=== PATIENT | female | born 1990 | race Two or more races ===

== ENCOUNTER 2025-06-16 09:35 | Observation (INO) | payer SELFPAY ==
[2025-06-16] VITALS (9 sets, daily range): BP systolic 113; BP diastolic 78; PULSE 81–111; RESP 18–99; TEMP 36.7; O2SAT 98–99; BMI 29.7
== END 2025-06-16 12:02 | disposition home or self-care (01) ==
PROVIDERS: Admitting Provider Obstetrics & Gynecology; Visit Provider Obstetrics & Gynecology
DX: O47.1 False labor at or after 37 completed weeks of gestation (principal); Z3A.37 37 weeks gestation of pregnancy
CPT/HCPCS: 59025; 59899

== ENCOUNTER 2025-06-26 10:06 | Observation (INO) | payer MEDICAID, SELFPAY ==
[2025-06-26 10:02] VITALS: BP 114/70; PULSE 68
--- NOTE | 2025-06-26 10:08 | XR_ITS ---
Examination: Biophysical profile, ultrasound Date and time of exam: 06/26/2025, 11:55 a.m. INDICATION: Limited care, advanced maternal age COMPARISON: None Technique: Multiple transabdominal sonographic images of the pelvis abdomen obtained. Attention is directed to the breathing movement, gross body movement, amniotic fluid volume and tone. Findings: Single live IUP in cephalic position. Total biophysical profile is 8 of 8. breathing movement is 2. Gross body movement is 2. tone is 2. Qualitative amniotic fluid volume is 2 AFSANEH: 10.7 cm. FHR: 148 bpm. Impression: Biophysical profile is 8 of 8.
--- NOTE | 2025-06-26 10:10 | XR_ITS ---
Examination: Complete OB ultrasound greater than 14 weeks Date and time of exam: 06/26/2025 11:55 a.m. INDICATION: Limited care, for assessment. COMPARISON: No priors. Same day US BPP. Findings: Viable intrauterine single fetus with single amniotic sac in cephalic presentation. spine is to the maternal left side. cardiac motion: 133 bpm.. Composite estimated gestational age based on BPD, head circumference, abdominal circumference, femur length is 35 weeks 5 days with EMANI of 07/26/2025. EFW: 2865 g +/-424 g. AFSANEH: 8.2 cm. Placenta: Grade 3, fundal location. No abruption. Limited survey due to advanced gestational age. Survey of intracranial anatomy, spinal anatomy, abdominal anatomy, four-chamber heart performed with no abnormalities identified. Vocal cord insertion identified. bladder, kidneys and stomach are seen. Maternal cervix: Measures 3.9 cm in length, closed Maternal ovaries obscured by shadowing from the large gravid uterus. Impression: Single live IUP in cephalic presentation with AUA of 35 weeks 5 days. No acute abnormality detected. EFW: 2865 g +/-424 g. AFSANEH: 8.2 cm.
[2025-06-26 10:11] VITALS: BP 114/70; PULSE 68; RESP 18; RESP 99; TEMP 36.7; BMI 29.3
== END 2025-06-26 13:18 | disposition home or self-care (01) ==
LOC: S4S1 10:58 → S4SX 12:50
PROVIDERS: Admitting Provider Obstetrics & Gynecology; Referring Provider Obstetrics & Gynecology; Visit Provider Obstetrics & Gynecology
DX: O09.33 Supervision of pregnancy with insufficient antenatal care, third trimester (principal); O09.513 Supervision of elderly primigravida, third trimester; Z3A.39 39 weeks gestation of pregnancy
CPT/HCPCS: 59025; 59899; 76805; 76819; G0378

== ENCOUNTER 2025-06-26 18:53 | Inpatient (IN) | payer MEDICAID, SELFPAY ==
[2025-06-26 19:35] VITALS: BMI 32.5
[2025-06-26 19:49] VITALS: BMI 32.5
[2025-06-26] MEDS: RINGERS LACTATED 1000 ML 1,000 ML 125 ML IV (20:11)
[2025-06-26 20:29] VITALS: BP 99/75; PULSE 97
[2025-06-26 20:50] VITALS: BP 93/66; PULSE 93
[2025-06-26 21:15] VITALS: TEMP 36.7
[2025-06-26 21:18] LABS: Basophils # (Auto) 0.1 Thou/mm3 (0.0-0.2); Basophils % (Auto) 1 % (0-2.5); Eosinophils # (Auto) 0.1 Thou/mm3 (0.0-0.5); Eosinophils % (Auto) 1 % (0-10); Hematocrit 36.1 % (36.0-46.0); Hemoglobin 12.2 g/dL (12.0-16.0); Immature Granulocytes Auto 0.05 Thou/mm3 (0.00-0.00); Lymphocytes # (Auto) 2.1 Thou/mm3 (1.0-4.8); Lymphocytes % (Auto) 23 % (10-50); Mean Corpuscular HGB Conc 33.8 g/dl (31.0-37.0); Mean Corpuscular Hemoglobin 27.6 pg (25.0-35.0); Mean Corpuscular Volume 82 fL (80-100); Monocytes # (Auto) 0.9 Thou/mm3 (0.0-0.8); Monocytes % (Auto) 10 % (0-12); Neutrophils # (Auto) 6.0 Thou/mm3 (1.8-7.7); Neutrophils % (Auto) 66 % (37-80); Nucleated Red Blood Cell # 0.00 Thou/mm3 (0.00-0.00); Nucleated Red Blood Cell % 0 /100 WBC (0); Platelet Count 459 Thou/mm3 (140-440); RDW Standard Deviation 43.4 fL (36.4-46.3); Red Blood Count 4.42 Miln/mm3 (4.00-5.20); White Blood Count 9.1 Thou/mm3 (3.6-11.0)
[2025-06-26 21:24] LABS: Amphetamine/Metham Scrn,Ur OB Negative (Negative); Benzoylecgonine Screen, Ur OB Negative (Negative); Opiate Screen,Urine OB Negative (Negative); THC Screen,Urine OB Negative (Negative)
[2025-06-26 22:04] LABS: Syphilis Nonreactive (Nonreactive)
--- NOTE | 2025-06-26 22:16 | PD.LDHP ---
Documentation for date of: 06/26/25 OB Labor/Induct. HPI History of Present Illness Chief complaint: 35 years old at 39 weeks/SGA : 1 Term pregnancies: 0 pregnancies: 0 Living children: 0 History of Abortions: Spontaneous and Elective: 0 History of sections: No History of : No Date of last menstrual period: 09/26/24 EMANI: 07/03/25 Gestational Age (weeks): 39 Gestational Age (days): 0 Gestational age based on last menstrual period: 39 Indication for induction: other (AMA and SGA ) History of present illness: 35 Years old G1?P0 at 39 weeks gestational age?based on last menstrual period of dated?09/26/2024 and confirmed by a second trimester US by MFM .She was scheduled for IOL tomorrow but due to transportation issues , and AMA / ? SGA plan IOL today though EFW on US is 2.8 kg and placenta is grade 3 No complaints so far GBS negative LMP 09/26/2024 gives EDC of 07/03/2025 Ultrasound 03/13/2025 gives EDC of 07/04/2025 medical problems denies Allergies NKDA Surgical history none social history negative Comments: [facility] [address] [place] [address] [place] [facility] Report Signed Patient: DONN ROJAS Record#: [id number] Birthdate: 1990 Age/Sex: 35 / F Location: [address] Dr: Darrell Brand MD Ordering Physician: DARRELL BRAND MD Date of Service: 06/26/25 Procedure(s): US OB >= 14 weeks Fetus Accession Number(s): [id number] cc: DARRELL BRAND MD; NO PRIMARY/FAMILY,PHYSICIAN; Catracho Pathak DO~ Examination: Complete OB ultrasound greater than 14 weeks Date and time of exam: 06/26/2025 11:55 a.m. INDICATION: Limited care, for assessment. COMPARISON: No priors. Same day US BPP. Findings: Viable intrauterine single fetus with single amniotic sac in cephalic presentation. spine is to the maternal left side. cardiac motion: 133 bpm.. Composite estimated gestational age based on BPD, head circumference, abdominal circumference, femur length is 35 weeks 5 days with EMANI of 07/26/2025. EFW: 2865 g +/-424 g. AFSANEH: 8.2 cm. Placenta: Grade 3, fundal location. No abruption. Limited survey due to advanced gestational age. Survey of intracranial anatomy, spinal anatomy, abdominal anatomy, four-chamber heart performed with no abnormalities identified. Vocal cord insertion identified. bladder, kidneys and stomach are seen. Maternal cervix: Measures 3.9 cm in length, closed Maternal ovaries obscured by shadowing from the large gravid uterus. Impression: Single live IUP in cephalic presentation with AUA of 35 weeks 5 days. No acute abnormality detected. EFW: 2865 g +/-424 g. AFSANEH: 8.2 cm. Dictated By: Catracho Pathak DO Signed By: <Electronically signed by Catracho Pathak DO in OV> 06/26/25 1355 DD/ 1350 TD/TT: 06/26/25 1350 Pigment Pusher: MURALI History of Present Dating criteria: LMP confirmed by 2nd trimester US Adequate Care: Yes Ultrasounds: normal mid trimester US Obstetrical complications: other (AMA ) Medical complications: none Labs Maternal Blood Type: O Pos Labs: Positive: Rubella Titre, Negative: RPR, Hepatitis B, HIV, Chlamydia, Gonorrhea and Group Beta Strep and Unknown: Herpes Type 1 and Herpes Type 2 Review of Systems Review of Systems Systems Reviewed: All systems reviewed, normal except as documented Past Medical History Surgical History SURGICAL: Negative Section Meds Home Medications and Allergies Home Medications ?Medication ?Instructions ?Recorded ?Confirmed ?Type No Known Home Medications 06/16/25 06/26/25 History Allergies Allergy/AdvReac Type Severity Reaction Status Date / Time No Known Allergies Allergy Verified 06/26/25 19:33 OB Exam Physical Exam Vital signs: Pulse BP 93 93/66 06/26/25 20:50 06/26/25 20:50 Narrative: Alert and oriented x 3 no shortness of breath Pain no chest pain no palpitations Chest clear bilaterally no additional sounds, no wheezing no rales CVS regular rate and rhythm No CVAT Abdomen nontender, normal bowel sounds No guarding no rigidity No hernias Detailed Labor and Delivery Exam Dilation (cm): 1.5 Effacement (%): 50 Cervix position: posterior station: -2 Consistency: medium Presentation: Vertex Cervical ripeness score: 5 Membranes: intact Baseline heart rate: 140 monitor accelerations: 15x15 monitor decelerations: None FPC variability: Average (6-10) Contraction frequency (min): occasional Tachysystole: No Contraction intensity: Mild OB Results Labs 06/26/25 19:49 Labs: Short CBC 06/26/25 Range/Units 19:49 WBC 9.1 (3.6-11.0) Thou/mm3 Hgb 12.2 (12.0-16.0) g/dL Hct 36.1 (36.0-46.0) % Plt Count 459 H (140-440) Thou/mm3 OB Assessment & Plan Assessment and Plan (1) Advanced maternal age (AMA) in : Status: Acute (2) : Status: Acute Additional Plan Induction method: per misoprostol protocol Plan: induction and anticipate NVD Additional Plan Comment: induction of labor for AMA per MFM recommendation initial EFW was reported as 2065 grams but actual report is 2.8 kg and that is compatible with clinical exam . plan IOL (2) Qualifiers: Weeks of gestation: 39 weeks Qualified Code(s): Z3A.39 - 39 weeks gestation of
[2025-06-26 22:46] VITALS: BP 119/78; PULSE 64; RESP 17
[2025-06-26 23:43] VITALS: BP 110/77; PULSE 61; RESP 16
[2025-06-27] VITALS (54 sets, daily range): BP systolic 88–141; BP diastolic 58–87; PULSE 56–97; RESP 16–20; TEMP 36.6–36.8; O2SAT 87–100
[2025-06-27] MEDS: RINGERS LACTATED 1000 ML 1,000 ML 125 ML IV (04:39)
[2025-06-27] MEDS: fentaNYL CIT INJ 50 mCg/ML AMP 2ML 100 MCG IVP ×2 (07:27→09:29)
--- NOTE | 2025-06-27 09:55 | PD.LDPN ---
Documentation for date of: 06/27/25 OB Labor Progress Note Pelvic Exam Dilation (cm): 9 Effacement (%): 90 station: -1 Amniotic membrane status: Ruptured (clear AROM at 0950) Contractions Monitor mode: External Contraction frequency: 2-6 Contraction pattern: Tetanic Contraction intensity: Moderate Status status: Category l Assessment and Plan Comments: I assumed care of Mara at 0700 this morning. In brief, she is a 35yo with SIUP at 39w1d undergoing IOL for AMA, grade 3 placenta, EFW 2865g. GBS negative. She had IOL started with cytotec last night and recently had quick cervical progression from 1 to 6cm. She declines epidural, has received a couple doses of IV fentanyl total. Unfortunately, is not able to attend delivery based on employer restrictions. She is doing very well breathing through contractions. Gave option for epidural vs AROM and she desired AROM, declined epidural. AROM performed approx 0950 with clear fluid noted, well tolerated. SCE /-1. Cat I to II FHRT for min-mod catalina, +accels, no decels. Vitals wnl. Afebrile. Plan to continue expectant management. Anticipate soon. Continue to closely observe Push when complete Safe to proceed Fior Viveros MD
[2025-06-27] MEDS: BENZO/LANO/ALOE (Dermoplast) 60 GM CAN 1 SPRAY TOP (11:03)
[2025-06-27] MEDS: LIDOCAINE HCL 1% 20 ML VIAL INFL (11:04)
[2025-06-27] MEDS: IBUPROFEN TAB 400 MG TABLET 800 MG PO (11:04)
[2025-06-27] MEDS: MINERAL OIL 30 ML UDC TOP (11:04)
[2025-06-27] MEDS: METHYLERGONOVINE INJ 0.2 MG/ML VIAL IM (11:04)
[2025-06-27] MEDS: OXYTOCIN in NS 20 units 20 UNIT/1,000 ML BAG 125 UNIT IV (11:05)
--- NOTE | 2025-06-27 11:14 | OBDSUM_ITS ---
Data (Ley) Data Hx Section: No : 1 Term: 0 : 0 Livin Abortions: Spontaneous & Theraputic: 0 Delivery Data (Ley) Labor Data Initiation of labor: Induction Induction/Augmentation Agent: Cytotec-PO and Artificial ROM ROM date: 06/27/25 ROM time: 09:48 Amniotic membrane rupture type: Artificial Amniotic fluid description: Clear Delivery Data Onset of labor date: 06/27/25 Onset of labor time: 07:00 Complete dilation date: 06/27/25 Complete dilation time: 10:10 delivery date: 06/27/25 [place] delivery time: 10:28 Placenta delivery date: 06/27/25 Placenta delivery time: 10:34 Stage 1 total time: Labor - Stage 1 Duration 3 hours and 10 minutes Delivered by: Fior Viveros Delivery nurse: LORENZO Pino Neworn nurse: LORENZO Smith Laboratory Technologist at delivery: No Other staff at delivery: LORENZO Damon RN Delivery Method Delivery method: Normal Vaginal Delivery Presentation: Vertex Anesthesia Type Anesthesia Type: Local Placenta Placenta delivery description: Spontaneous Cord blood sent to lab: Yes cord blood collection: Cord Blood Type Episiotomy Episiotomy description: None EBL Estimated blood loss (ml): 300 Additional Procedures Mara is a 35yo s/p uncomplicated at 39&1wk after undergoing IOL for AMA, delivering at 1028 on 06/27/2025. On presentation, SCE was 1cm. She progressed with cytotec and AROM to C/C/+2 at which point she began pushing. She declined epidural. With good maternal pushing efforts, 's head delivered OA and restituted YULY. Left anterior shoulder delivered easily followed by posterior shoulder and corpus. Infant had spontaneous cry and was vigorous. Apgars 9/9. placed on maternal abdomen where nose/mouth were suctioned and infant dried/stimulated. After approximately 2 minutes, cord was clamped x2 and cut by patient. Cord blood collected for typing. With fundal massage and cord traction, placenta delivered spontaneously and intact with 3 vessel centrally inserted cord. Bimanual massage performed and IV pitocin given per protocol with fundus then firm at u-2cm and hemostasis noted. Inspection of perineum and vagina revealed bilateral labial lacerations and a 2nd degree midline perineal laceration which were repaired in routine fashion with 3-0 vicryl after anesthetizing with 1% lidocaine- total reapproximation and hemostasis achieved. Small trickle of blood, so sweep just within cervix/VINNIE performed which retrieved a small amount of clot. 0.2mg IM methergine given with observed hemostasis after. All counts correct x2. Mom and were doing well when I left the room. Fior Viveros MD Complications Complications: none Data (Ley) Data order: 1 's gender: Female Identification band number: [id number] 1 minute: 9 5 minutes: 9
[2025-06-27 17:28] LABS: Basophils # (Auto) 0.0 Thou/mm3 (0.0-0.2); Basophils % (Auto) 0 % (0-2.5); Eosinophils # (Auto) 0.0 Thou/mm3 (0.0-0.5); Eosinophils % (Auto) 0 % (0-10); Hematocrit 33.4 % (36.0-46.0); Hemoglobin 11.3 g/dL (12.0-16.0); Immature Granulocytes Auto 0.07 Thou/mm3 (0.00-0.00); Lymphocytes # (Auto) 1.5 Thou/mm3 (1.0-4.8); Lymphocytes % (Auto) 9 % (10-50); Mean Corpuscular HGB Conc 33.8 g/dl (31.0-37.0); Mean Corpuscular Hemoglobin 27.4 pg (25.0-35.0); Mean Corpuscular Volume 81 fL (80-100); Monocytes # (Auto) 1.5 Thou/mm3 (0.0-0.8); Monocytes % (Auto) 9 % (0-12); Neutrophils # (Auto) 13.5 Thou/mm3 (1.8-7.7); Neutrophils % (Auto) 82 % (37-80); Nucleated Red Blood Cell # 0.00 Thou/mm3 (0.00-0.00); Nucleated Red Blood Cell % 0 /100 WBC (0); Platelet Count 408 Thou/mm3 (140-440); RDW Standard Deviation 42.9 fL (36.4-46.3); Red Blood Count 4.13 Miln/mm3 (4.00-5.20); White Blood Count 16.6 Thou/mm3 (3.6-11.0)
[2025-06-27] MEDS: ACETAMINOPHEN 325 MG TABLET 650 MG PO (17:28)
[2025-06-27] MEDS: DOCUSATE SOD 100 MG CAPSULE PO (20:05)
[2025-06-28] VITALS: BP 112/75; PULSE 74; RESP 20; TEMP 36.4; O2SAT 97
[2025-06-28 04:23] VITALS: BP 114/72; PULSE 69; RESP 18; TEMP 37; O2SAT 98
[2025-06-28 08:20] VITALS: BP 100/66; PULSE 71; RESP 18; TEMP 37; O2SAT 97
[2025-06-28] MEDS: DOCUSATE SOD 100 MG CAPSULE PO (08:26)
--- NOTE | 2025-06-28 12:05 | PC.NURSE ---
Ok to discharge per [facility] social research assistant
--- NOTE | 2025-06-28 12:13 | PD.LDDS ---
DS: Providers Provider Date of admission: 06/26/25 18:53 Primary care physician: Physician No Primary/Family Admitting Provider: Jane Brand MD Attending Provider on Admission: Fior Viveros MD Consults: 06/27/25 11:12 Referral Routine Comment: Attending Provider on DC: Fior Viveros MD Discharging Provider: Fior Viveros MD DS: Diagnosis Discharge Diagnosis (1) Vaginal delivery: Status: Acute (2) Advanced maternal age (AMA) in : Status: Acute Problem List Completed Was Problem List Reviewed/Reconciled?: Yes Summary/Hosp Course Brief History: Mara is a 35yo [id number] s/p uncomplicated at 39wk after undergoing IOL for AMA, delivering at 1028 on 06/27/25. She has had an uncomplicated course, meeting all milestones and feels ready for discharge home. She is ambulating without lightheadedness, tolerating regular diet no n/v, spontaneously voiding without issue. She has no chest pain or shortness of breath. No fevers or chills. Minimal, appropriate discomfort. Vitals normal, benign exam. Hemodynamically stable with no evidence of infection. PP Hgb 11.3. Peripartum Data Delivery Method: Normal Vaginal Delivery Episiotomy Description: None Status at Discharge Functional status at discharge: independent ambulation Overall status at discharge: patient is back to baseline Time Spent with Patient Time attestation: Total time spent providing and/or coordinating discharge services: Exam Vital Signs Temp Pulse Resp BP Pulse Ox O2 Del Method 98.6 F 71 18 100/66 97 Room Air 06/28/25 08:20 06/28/25 08:20 06/28/25 08:20 06/28/25 08:20 06/28/25 08:20 06/28/25 08:20 Narrative Exam General: well developed, well nourished, no acute distress, conversant Cardiac: normal heart rate Lungs: breathing without distress Abdomen: soft, post-gravid, non-tender, no rebound or guarding, Fundus firm at u-3cm. Extremities: no pain with palpation of calves, trace edema of BLE Discharge Plan Plan Patient Disposition: HOME (Self Care) Patient condition on transfer: Stable Prescriptions/Referrals Prescriptions/Med Rec: New docusate sodium 100 mg Capsule 100 mg PO BID 10 Days Qty: 20 0RF ibuprofen 800 mg tablet 800 mg PO Q8H PRN (Reason: See Comments) 10 Days Qty: 20 0RF Referrals: No Primary/Family,Physician [Primary Care Provider] Patient/Caregiver Discharge Instructions Discharge Activity: activity as tolerated and other Other Discharge Activity Instructions:: vaginal rest and no heavy lifting more than 10 pounds for 6 weeks. Descanzo vaginal no levantar nada que pese mas de 10 libras por 6 semanas Other Discharge Diet Instructions: regular Education Materials: After a Vaginal , Breast Care After Print Language: Dominican Activity Restrictions/Additional Instructions: follow up with OBGYN in 4 to 6 weeks, call clinic to schedule appointment Stand Alone Forms: Sadie Award Info., Patient Portal Info Letter Discharge Order Discharge Orders: Discharge (Routine); Ordered 06/28/25 Ordered By: Fior Viveros Planned Discharge Date 06/28/25
--- NOTE | 2025-06-28 12:42 | PC.SS ---
animal nursery worker (ELMA) Valentina, along with LISSETH Olsen, met with the patient and partner at the bedside following a social service barrow for Late to Care. Per chart review, the patient was a BIB family with c/o 39 weeks of gestational age?based on the last menstrual period dated 09/26/2024 and confirmed by a second-trimester US by MFBlanca. SW met with the patient and partner at the bedside and introduced self, role, and reason for the consult. Patient is alert and oriented to person, place, time, and situation. Patient verbally agreed to participate in the assessment with the partner at the bedside. Patient presented with good eye contact, cooperative, and appropriate. Patient designated her partner, Arie Jauregui, , as her surrogate medical decision maker. Patient is Mara Gotti, , 35 y/o Slovenian-speaking female residing with family at [address] [place] [address]. Patient is currently unemployed and being financially supported by her partner. Patient is independent and able to attend to her ADLs. Patient has [facility] [employer]. Patient has no history of mental health issues or substance abuse. No history of abuse/neglect. Patient has no hx or involvement with CWS. Patient received care at [facility] with day porter, Kamran Mcdonnell. Patient reports that the reason for late care was due to her being unaware that she was . Patient reports she noticed her menstrual cycle was late for two months and had symptoms of nausea, but did not think she was ; however, she f/u at [facility]. At this time, a CWS report is not warranted due to no suspicion of neglect or abuse. Patient delivered a baby girl, Haydee Fisher; patient's first baby. Baby's father is the patient's partner, Arie Jauregui, who is present in the room and involved in the baby's care. Patient is already connected with [facility]; patient was advised to follow up with them to update them on baby Haydee' . Patient was also advised to follow up with [employer] to request insurance for baby Haydee. Patient has a car seat at bedside and all baby necessities at bedside. Patient reports she does not drive; partner drives her to medical appointments. SW let the patient know of transportation benefits through [employer] for medical transportation. Discharge plan: Patient will be discharged home with partner support. Partner will provide transportation?no needs at this time. SW provided community resources and the [facility].
== END 2025-06-28 13:55 | disposition home or self-care (01) | DRG 560 ==
LOC: S4SX 06-27 11:14 → S4NX 06-27 17:23
PROVIDERS: Admitting Provider Obstetrics & Gynecology; Visit Provider Obstetrics & Gynecology
DX: O36.5930 Maternal care for other known or suspected poor fetal growth, third trimester, not applicable or unspecified (principal); Z37.0 Single live birth; Z3A.39 39 weeks gestation of pregnancy
CPT/HCPCS: 36415; 59409; 80307; 85025; 86780; 86850; 86900; 86901; 94762; J2210; J2590; J3010; J3490; J7120; A9270